=== PATIENT | male | born 1955 | race Caucasian/White ===

== ENCOUNTER → 2025-03-21 09:02 | Outpatient (BNVA) | payer MEDICARE, SELFPAY | DX: E11.9 Type 2 diabetes mellitus without complications (principal); E03.9 Hypothyroidism, unspecified; Z12.5 Encounter for screening for malignant neoplasm of prostate; N40.0 Benign prostatic hyperplasia without lower urinary tract symptoms | CPT/HCPCS: 80053; 83036; 84439; 84443; 85025; G0103 ==